=== PATIENT | female | born 1950 | race Caucasian/White ===

== ENCOUNTER → 2017-01-05 | Day surgery (SDC) | payer MEDICARE, SELFPAY ==
[~2017-01-05] VITALS: Ht 157.5 cm; Wt 78.0 kg
[~2017-01-05] MED LIST: CELEXA20 MG PO; COMBIVENT0.074 GM/I INH; LEVOTHYROXINE75 MCG PO; NORCO 7.5-3251 EACH PO; PANTOPRAZOLE SO40 MG PO; VIT D3 PO
== END | disposition home or self-care (01) ==
LOC: OR 12-27 14:15
PROVIDERS: Surgery
PROC: 0DBL8ZZ Excision of Transverse Colon, Via Natural or Artificial Opening Endoscopic (ICD-10-PCS; 2017-01-05)
PROC: 0DBF8ZX Excision of Right Large Intestine, Via Natural or Artificial Opening Endoscopic, Diagnostic (ICD-10-PCS; principal; 2017-01-05 07:30)
DX: Z12.11 Encounter for screening for malignant neoplasm of colon (principal); D12.3 Benign neoplasm of transverse colon; D12.6 Benign neoplasm of colon, unspecified; D12.9 Benign neoplasm of anus and anal canal; K57.30 Diverticulosis of large intestine without perforation or abscess without bleeding; J44.9 Chronic obstructive pulmonary disease, unspecified; K21.9 Gastro-esophageal reflux disease without esophagitis; M81.0 Age-related osteoporosis without current pathological fracture; F41.9 Anxiety disorder, unspecified; Z87.01 Personal history of pneumonia (recurrent); Z87.891 Personal history of nicotine dependence; Z82.49 Family history of ischemic heart disease and other diseases of the circulatory system; Z83.3 Family history of diabetes mellitus; Z88.1 Allergy status to other antibiotic agents; Z88.2 Allergy status to sulfonamides; Z88.8 Allergy status to other drugs, medicaments and biological substances; Z79.899 Other long term (current) drug therapy; Z90.49 Acquired absence of other specified parts of digestive tract; Z98.890 Other specified postprocedural states
CPT/HCPCS: J7120

== ENCOUNTER 2017-03-11 14:10 | Emergency (ER) | payer MEDICARE, SELFPAY ==
[~2017-03-11 14:10] MED LIST changes: -NORCO 7.5-3251 EACH PO
[2017-05-23] MEDS ORDERED: NORCO 7.5-3251 EACH PO (11:56)
== END 2017-03-11 16:34 | disposition home or self-care (01) ==
LOC: ER1 14:10
DX: M71.22 Synovial cyst of popliteal space [Baker], left knee (principal); Z88.2 Allergy status to sulfonamides
CPT/HCPCS: 29515; 73564; 93971; 99284

== ENCOUNTER → 2017-04-13 | Outpatient (CLI) | payer MEDICARE, SELFPAY ==
[~2017-04-13] MED LIST changes: +NORCO 7.5-3251 EACH PO
== END ==
LOC: KOH-I 13:00
DX: S83.242D Other tear of medial meniscus, current injury, left knee, subsequent encounter (principal); M71.22 Synovial cyst of popliteal space [Baker], left knee
CPT/HCPCS: 73721

== ENCOUNTER → 2021-02-02 | Outpatient (CLI) | payer MEDICARE ==
[~2021-02-02] MED LIST changes: +CEFDINIR300 MG PO; +CEFUROXIME500 MG PO; +FLUTICASONE; +LEVAQUIN500 MG PO; +LEVOTHYROXINE75 MC1 PO; +LEXAPRO10 MG PO; +MEDROL4 MG PO; +NORVASC 5 MG TAB5 MG PO; +SYMBICORT 16010.2 GM INH; +VENTOLIN HFA 66.7 GM INH; +VITAMIN D3 PO; +ZYRTEC10 MG PO; +[UNRECOGNIZED DRUG - OTHER]
[2021-02-02 08:23] LABS: HEMOGLOBIN 14.3 gm/dl (12.3-15.3); RED BLOOD COUNT 4.79 M/UL (4.00-5.10); WHITE BLOOD COUNT 5.5 K/UL (4.5-11.0)
== END ==
LOC: LAB 08:01
PROVIDERS: Family Medicine
DX: I10 Essential (primary) hypertension (principal); E78.2 Mixed hyperlipidemia; E55.9 Vitamin D deficiency, unspecified; K21.9 Gastro-esophageal reflux disease without esophagitis; E03.9 Hypothyroidism, unspecified; Z79.899 Other long term (current) drug therapy
CPT/HCPCS: 36415; 80053; 80061; 82607; 83735; 84439; 84443; 85027

== ENCOUNTER → 2021-03-11 | Outpatient (CLI) | payer MEDICARE, SELFPAY, OTHER | LOC: HEART 5 10:43 | DX: Z01.818 Encounter for other preprocedural examination (principal); J98.8 Other specified respiratory disorders | CPT/HCPCS: 94060; 94729 ==

== ENCOUNTER → 2021-03-30 | Day surgery (SDC) | payer MEDICARE, SELFPAY | END | disposition home or self-care (01) | LOC: OR 06:09 | PROVIDERS: Surgery | PROC: 0DBK8ZZ Excision of Ascending Colon, Via Natural or Artificial Opening Endoscopic (ICD-10-PCS; 2021-03-30) | PROC: 0DBL8ZZ Excision of Transverse Colon, Via Natural or Artificial Opening Endoscopic (ICD-10-PCS; 2021-03-30) | PROC: 0DBP8ZX Excision of Rectum, Via Natural or Artificial Opening Endoscopic, Diagnostic (ICD-10-PCS; principal; 2021-03-30 07:30) | DX: Z12.11 Encounter for screening for malignant neoplasm of colon (principal); D12.3 Benign neoplasm of transverse colon; D12.2 Benign neoplasm of ascending colon; K63.5 Polyp of colon; K57.30 Diverticulosis of large intestine without perforation or abscess without bleeding; K64.4 Residual hemorrhoidal skin tags; K62.1 Rectal polyp; F41.9 Anxiety disorder, unspecified; J43.2 Centrilobular emphysema; F32.9 Major depressive disorder, single episode, unspecified; K21.9 Gastro-esophageal reflux disease without esophagitis; I10 Essential (primary) hypertension; E03.9 Hypothyroidism, unspecified; E78.2 Mixed hyperlipidemia; E55.9 Vitamin D deficiency, unspecified; Z88.2 Allergy status to sulfonamides; Z91.040 Latex allergy status; Z88.8 Allergy status to other drugs, medicaments and biological substances; Z79.82 Long term (current) use of aspirin; Z79.899 Other long term (current) drug therapy; Z90.49 Acquired absence of other specified parts of digestive tract; Z98.890 Other specified postprocedural states; Z87.891 Personal history of nicotine dependence; Z20.822 Contact with and (suspected) exposure to COVID-19 | CPT/HCPCS: J2001; J2704; J7120 ==

== ENCOUNTER → 2021-05-21 | Outpatient (CLI) | payer MEDICARE | LOC: ECHO 13:00 | DX: I08.1 Rheumatic disorders of both mitral and tricuspid valves (principal) | CPT/HCPCS: ECHO; 93306 ==

== ENCOUNTER → 2021-06-08 | Outpatient (CLI) | payer MEDICARE | LOC: EXRD 09:41 | DX: Z13.6 Encounter for screening for cardiovascular disorders (principal); I70.8 Atherosclerosis of other arteries | CPT/HCPCS: 76706 ==

== ENCOUNTER → 2021-10-08 | Outpatient (CLI) | payer MEDICARE | LOC: MAMO 13:30 | DX: Z12.31 Encounter for screening mammogram for malignant neoplasm of breast (principal) | CPT/HCPCS: 77063; 77067 ==

== ENCOUNTER → 2022-02-16 | Outpatient (CLI) | payer MEDICARE ==
[~2022-02-16] MED LIST changes: +PREDNISONE20 MG PO
[2022-02-16 09:42] LABS: HEMOGLOBIN 14.5 gm/dl (12.3-15.3); RED BLOOD COUNT 4.92 M/UL (4.00-5.10); WHITE BLOOD COUNT 7.5 K/UL (4.5-11.0)
== END ==
LOC: LAB 09:15
PROVIDERS: Family Medicine
DX: E03.9 Hypothyroidism, unspecified (principal); E78.2 Mixed hyperlipidemia; K21.9 Gastro-esophageal reflux disease without esophagitis; E55.9 Vitamin D deficiency, unspecified; Z79.899 Other long term (current) drug therapy
CPT/HCPCS: 36415; 80053; 80061; 82607; 83735; 84439; 84443; 85027

== ENCOUNTER 2022-02-19 10:25 | Emergency (ER) | payer MEDICARE ==
[~2022-02-19 10:25] MED LIST changes: -PREDNISONE20 MG PO
[2022-02-19 11:31] LABS: HEMOGLOBIN 14.3 gm/dl (12.3-15.3); RED BLOOD COUNT 4.81 M/UL (4.00-5.10); WHITE BLOOD COUNT 8.4 K/UL (4.5-11.0)
[2022-02-19 12:28] LABS: BUN/CREATININE RATIO 17 (0-10)
[2022-02-19] MEDS ORDERED: PREDNISONE20 MG PO (13:26)
== END 2022-02-19 13:50 | disposition home or self-care (01) ==
LOC: ER1 10:25
PROVIDERS: Family Medicine
DX: J96.11 Chronic respiratory failure with hypoxia (principal); J44.1 Chronic obstructive pulmonary disease with (acute) exacerbation; Z88.1 Allergy status to other antibiotic agents
CPT/HCPCS: 36600; 71045; 80053; 82550; 82553; 82803; 83605; 83880; 84484; 85025; 85610; 87040; 93005; 94664; 96374; 99284; J2930

== ENCOUNTER → 2022-05-28 | Outpatient (CLI) | payer MEDICARE ==
[~2022-05-28] MED LIST changes: +PREDNISONE20 MG PO
== END ==
LOC: LAB 07:47
PROVIDERS: Family Medicine
DX: E78.5 Hyperlipidemia, unspecified (principal); R73.9 Hyperglycemia, unspecified
CPT/HCPCS: 36415; 80053; 80061; 83036; 83735

== ENCOUNTER 2022-06-24 11:12 | Inpatient (IN) | payer MEDICARE ==
[~2022-06-24] VITALS: Ht 157.5 cm; Wt 82.1 kg
[~2022-06-24 11:12] MED LIST changes: +EUTHYROX75 MCG PO; -LEVOTHYROXINE75 MC1 PO; -LEXAPRO10 MG PO; +LEXAPRO20 MG PO; -NORVASC 5 MG TAB5 MG PO; +NORVASC10 MG PO
[2022-06-24 15:45] LABS: HEMOGLOBIN 15.2 gm/dl (12.3-15.3); RED BLOOD COUNT 5.13 M/UL (4.00-5.10); WHITE BLOOD COUNT 10.3 K/UL (4.5-11.0)
[2022-06-24 16:05] LABS: BUN/CREATININE RATIO 12 (0-10)
[2022-06-24 20:36] LABS: BORDETELLA PARAPERTUSSIS Not Detected (Not Detectd); BORDETELLA PERTUSSIS Not Detected (Not Detectd); CHLAMYDIA PNEUMONIAE Not Detected (Not Detectd); CORONAVIRUS HKU1 Not Detected (Not Detectd); CORONAVIRUS NL63 Not Detected (Not Detectd); CORONAVIRUS OC43 Not Detected (Not Detectd); CORONOAVIRUS 229E Not Detected (Not Detectd); HUMAN METAPNEUMOVIRUS Not Detected (Not Detectd); HUMAN RHINOVIRUS/ENTEROVIRUS Not Detected (Not Detectd); INFLUENZA A Not Detected (Not Detectd); INFLUENZA B Not Detected (Not Detectd); MYCOPLASMA PNEUMONIAE Not Detected (Not Detectd); PARAINFLUENZA VIRUS 1 Not Detected (Not Detectd); PARAINFLUENZA VIRUS 2 Not Detected (Not Detectd); PARAINFLUENZA VIRUS 3 Not Detected (Not Detectd); PARAINFLUENZA VIRUS 4 Not Detected (Not Detectd); RESPIRATORY SYNCYTIAL VIRUS Not Detected (Not Detectd)
[2022-06-24 21:33] LABS: SARS-CoV-2 NOT DETECTED (Not Detectd)
[2022-06-25 05:32] LABS: HEMOGLOBIN 11.9 gm/dl (12.3-15.3); RED BLOOD COUNT 4.02 M/UL (4.00-5.10); WHITE BLOOD COUNT 7.6 K/UL (4.5-11.0)
[2022-06-25] MEDS ORDERED: SPIRIVA RESPIMAT4 GM INH (11:28)
[2022-06-25] MEDS ORDERED: VITAMIN D350 MCG PO (11:28)
[2022-06-26 05:42] LABS: HEMOGLOBIN 12.7 gm/dl (12.3-15.3); RED BLOOD COUNT 4.28 M/UL (4.00-5.10); WHITE BLOOD COUNT 7.2 K/UL (4.5-11.0)
[2022-06-26] MEDS ORDERED: LEVOFLOXACIN500 MG PO (09:48)
== END 2022-06-26 11:27 | disposition home or self-care (01) | DRG 193 ==
LOC: ER1 11:12 → CDU 23:38 → M/S 23:38
PROVIDERS: Physician Assistant; Physician Assistant Medical; ADMIT Internal Medicine
DX: J18.9 Pneumonia, unspecified organism (principal); J96.21 Acute and chronic respiratory failure with hypoxia; J44.0 Chronic obstructive pulmonary disease with (acute) lower respiratory infection; N39.0 Urinary tract infection, site not specified; D73.89 Other diseases of spleen; I10 Essential (primary) hypertension; R59.9 Enlarged lymph nodes, unspecified; K59.00 Constipation, unspecified; Z85.89 Personal history of malignant neoplasm of other organs and systems; Z99.81 Dependence on supplemental oxygen; Z90.49 Acquired absence of other specified parts of digestive tract; Z98.890 Other specified postprocedural states; Z87.891 Personal history of nicotine dependence; Z88.2 Allergy status to sulfonamides; Z88.8 Allergy status to other drugs, medicaments and biological substances; Z91.040 Latex allergy status; Z83.3 Family history of diabetes mellitus; Z80.9 Family history of malignant neoplasm, unspecified
CPT/HCPCS: 36415; 36600; 71045; 80048; 80053; 80202; 81001; 82550; 82553; 82803; 83690; 83735; 83880; 84443; 84484; 85025; 85027; 85379; 87040; 87081; 87086; 87633; 94640; 94664; 94760; 96361; 96374; 96375; 96376; 99285; J0696; J1650; J2270; J2405; J2543; J3370; J7070; Q9967